=== PATIENT | female | born 1980 | race Caucasian/White ===

== ENCOUNTER 2019-06-09 20:32 | Observation (INO) ==
[2019-06-09 22:02] LABS: Basophils # 0.1 K/mcL (0.0-0.2); Basophils % 0.6 %; Eosinophils # 0.2 K/mcL (0.0-0.6); Hematocrit 40.1 % (35.3-44.9); Hemoglobin 13.4 g/dL (11.5-15.4); Immature Granulocytes % 0.3 % (0-4); Lymphocytes % 20.6 %; Mean Corpuscular HGB Conc 33.4 g/dL (31.6-35.5); Mean Corpuscular Hemoglobin 31.5 pg (28.0-33.3); Mean Corpuscular Volume 94.4 fL (83.0-100.0); Mean Platelet Volume 8.4 fL (9.4-12.4); Monocytes # 0.5 K/mcL (0.0-1.3); Monocytes % 5.3 %; Platelet Count 391 K/mcL (140-400); Red Blood Count 4.25 M/mcL (3.82-4.97); Red Cell Distribution Width 12.8 % (11.5-14.5); Segmented Neutrophils % 71.2 %; White Blood Count 9.8 K/mcL (4.3-11.1)
[2019-06-09 22:04] LABS: INR 1.1; Prothrombin Time 12.9 Seconds (9.4-12.1)
[2019-06-09 22:19] LABS: BUN/Creatinine Ratio 6 (6-26); Blood Urea Nitrogen 6 mg/dL (6-20); Calcium 9.3 mg/dL (8.6-10.3); Carbon Dioxide 22 mEq/L (23-29); Chloride 104 mEq/L (98-107); Glucose 102 mg/dL (70-105); Osmolality,Calculated 278 (280-300); Potassium 3.3 mEq/L (3.5-5.1); Sodium 135 mEq/L (136-145); eGFR For African Americans > 60 (> 60); eGFR For Non-African Americans > 60 (> 60)
[2019-06-09] MEDS ORDERED: Isovue-370 500 ML BOTTLE IVP ONE (22:41)
[2019-06-09] MEDS ORDERED: Ondansetron 4 MG/2 ML VIAL IVP PRN (22:51)
[2019-06-09] MEDS ORDERED: Naloxone 0.4 MG/ML INJ IVP PRN (22:53)
[2019-06-09] MEDS ORDERED: 0.9 % Sodium Chloride 1,000 ML IVC SCH (23:00)
[2019-06-10] MEDS: Ketorolac 30 MG/ML VIAL IVP PRN ×2 (06:39→19:57)
[2019-06-10] MEDS: Piperacillin/Tazobactam 3.375 GM in 0.9 % Sodium Chloride Mini Bag 100 ML IVPB SCH ×2 (07:29→16:38)
[2019-06-10 08:14] LABS: Basophils # 0.1 K/mcL (0.0-0.2); Basophils % 0.7 %; Eosinophils # 0.2 K/mcL (0.0-0.6); Hematocrit 36.5 % (35.3-44.9); Hemoglobin 12.4 g/dL (11.5-15.4); Immature Granulocytes % 0.2 % (0-4); Lymphocytes # 1.7 K/mcL (0.6-4.6); Mean Corpuscular Hemoglobin 31.6 pg (28.0-33.3); Mean Corpuscular Volume 93.1 fL (83.0-100.0); Mean Platelet Volume 8.8 fL (9.4-12.4); Monocytes # 0.5 K/mcL (0.0-1.3); Monocytes % 4.9 %; Neutrophils # 6.7 K/mcL (1.6-8.9); Platelet Count 373 K/mcL (140-400); Red Blood Count 3.92 M/mcL (3.82-4.97); Red Cell Distribution Width 12.8 % (11.5-14.5); Segmented Neutrophils % 73.2 %; White Blood Count 9.2 K/mcL (4.3-11.1)
[2019-06-10] MEDS ORDERED: Acetaminophen 325 MG TABLET PO ONE ×2 (11:17→20:28)
[2019-06-10 11:31] LABS: Alanine Aminotransferase 6 Units/L (7-52); Albumin 3.7 g/dL (3.5-5.7); Albumin/Globulin Ratio 1.2 (1.1-2.2); Alkaline Phosphatase 112 Units/L (34-104); Aspartate Amino Transferase 12 Units/L (13-39); BUN/Creatinine Ratio 6 (6-26); Bilirubin,Total 0.4 mg/dL (0.3-1.0); Blood Urea Nitrogen 5 mg/dL (6-20); Calcium 8.7 mg/dL (8.6-10.3); Carbon Dioxide 20 mEq/L (23-29); Chloride 109 mEq/L (98-107); Glucose 108 mg/dL (70-105); Osmolality,Calculated 286 (280-300); Potassium 3.7 mEq/L (3.5-5.1); Sodium 139 mEq/L (136-145); Total Protein 6.7 g/dL (6.4-8.9); eGFR For African Americans > 60 (> 60); eGFR For Non-African Americans > 60 (> 60)
[2019-06-11] MEDS ORDERED: Aminoglycoside Consult 1 EACH MC ONE (00:03)
[2019-06-11] MEDS: Piperacillin/Tazobactam 3.375 GM in 0.9 % Sodium Chloride Mini Bag 100 ML IVPB SCH ×4 (00:05→23:41)
[2019-06-11] MEDS: Ketorolac 30 MG/ML VIAL IVP PRN (05:36)
[2019-06-11 05:50] LABS: Hematocrit 36.5 % (35.3-44.9); Hemoglobin 12.2 g/dL (11.5-15.4); Mean Corpuscular HGB Conc 33.4 g/dL (31.6-35.5); Mean Corpuscular Hemoglobin 31.4 pg (28.0-33.3); Mean Corpuscular Volume 94.1 fL (83.0-100.0); Mean Platelet Volume 8.5 fL (9.4-12.4); Platelet Count 328 K/mcL (140-400); Red Blood Count 3.88 M/mcL (3.82-4.97); Red Cell Distribution Width 12.8 % (11.5-14.5); White Blood Count 5.8 K/mcL (4.3-11.1)
[2019-06-11 06:14] LABS: BUN/Creatinine Ratio 6 (6-26); Blood Urea Nitrogen 6 mg/dL (6-20); Calcium 8.7 mg/dL (8.6-10.3); Carbon Dioxide 21 mEq/L (23-29); Chloride 108 mEq/L (98-107); Glucose 94 mg/dL (70-105); Osmolality,Calculated 285 (280-300); Sodium 139 mEq/L (136-145); eGFR For African Americans > 60 (> 60); eGFR For Non-African Americans > 60 (> 60)
[2019-06-11] MEDS ORDERED: Ethanol\\Acetic Acid\\Na Ace\\Ben 1,000 ML IRRIG.SOLN IR ONE (17:14)
[2019-06-11] MEDS ORDERED: *HR* Propofol 200 MG/20 ML VIAL IVP ONE (17:16)
[2019-06-11] MEDS ORDERED: *HR* Midazolam HCl 2 MG/2 ML VIAL ONE (17:16)
[2019-06-11] MEDS ORDERED: *HR* FentaNYL (PF) 100 MCG/2 ML VIAL ONE (17:16)
[2019-06-11] MEDS ORDERED: Ondansetron 4 MG/2 ML VIAL ONE (17:18)
[2019-06-11] MEDS ORDERED: Lidocaine -MPF 2% 2 ML VIAL ONE (17:18)
[2019-06-11] MEDS ORDERED: *HR* HYDROMORPHONE 2 MG/ML VIAL ONE (18:08)
[2019-06-11] MEDS: *HR* HYDROmorphone (PF) 1 MG/ML SYRINGE IVP PRN ×3 (19:25→19:39)
[2019-06-11] MEDS ORDERED: Naloxone 0.4 MG/ML INJ IVP PRN ×2 (20:19)
[2019-06-11] MEDS ORDERED: Sennosides 8.6 MG TABLET PO PRN (20:19)
[2019-06-11] MEDS ORDERED: MOM Conc 10 ML UD.LIQ PO PRN (20:19)
[2019-06-11] MEDS ORDERED: Ondansetron 4 MG/2 ML VIAL IVP PRN ×2 (21:28→21:29)
[2019-06-11] MEDS ORDERED: Temazepam 15 MG CAPSULE PO PRN (21:30)
[2019-06-11] MEDS ORDERED: *HR* Promethazine 25 MG/ML VIAL IVP PRN (21:30)
[2019-06-12 02:09] LABS: Basophils % 0.6 %; Eosinophils # 0.1 K/mcL (0.0-0.6); Eosinophils % 1.9 %; Hemoglobin 12.6 g/dL (11.5-15.4); Immature Granulocytes % 0.4 % (0-4); Lymphocytes # 1.3 K/mcL (0.6-4.6); Mean Corpuscular HGB Conc 34.1 g/dL (31.6-35.5); Mean Corpuscular Hemoglobin 31.2 pg (28.0-33.3); Mean Corpuscular Volume 91.6 fL (83.0-100.0); Monocytes # 0.3 K/mcL (0.0-1.3); Monocytes % 5.1 %; Neutrophils # 3.4 K/mcL (1.6-8.9); Platelet Count 344 K/mcL (140-400); Red Blood Count 4.04 M/mcL (3.82-4.97); Red Cell Distribution Width 12.8 % (11.5-14.5); White Blood Count 5.1 K/mcL (4.3-11.1)
[2019-06-12 02:30] LABS: BUN/Creatinine Ratio 7 (6-26); Blood Urea Nitrogen 6 mg/dL (6-20); Calcium 8.5 mg/dL (8.6-10.3); Carbon Dioxide 21 mEq/L (23-29); Chloride 108 mEq/L (98-107); Glucose 81 mg/dL (70-105); Osmolality,Calculated 283 (280-300); Potassium 3.6 mEq/L (3.5-5.1); Sodium 138 mEq/L (136-145); eGFR For African Americans > 60 (> 60); eGFR For Non-African Americans > 60 (> 60)
[2019-06-12] MEDS: Ketorolac 30 MG/ML VIAL IVP PRN ×2 (03:36→11:05)
[2019-06-12] MEDS: Multivit/Ca/Min/Fe/FA 1 TAB TABLET PO SCH (08:48)
[2019-06-12] MEDS: Ascorbic Acid 500 MG TABLET PO SCH ×2 (08:48→16:47)
[2019-06-12] MEDS: Piperacillin/Tazobactam 3.375 GM in 0.9 % Sodium Chloride Mini Bag 100 ML IVPB SCH (08:48)
[2019-06-12] MEDS ORDERED: VILAZODONE HCL PO SCH ×2 (09:00)
[2019-06-12] MEDS ORDERED: (Brexpiprazole [Rexulti] 2 MG) PO SCH ×2 (09:00)
[2019-06-12] MEDS: cephALEXin 500 MG CAPSULE PO SCH ×3 (12:11→19:44)
[2019-06-12] MEDS ORDERED: *HR* LORazepam 1 MG TABLET PO ONE (18:57)
[2019-06-12] MEDS ORDERED: Haloperidol Lactate 5 MG/ML VIAL IVP ONE (18:57)
[2019-06-12] MEDS: Ringers Solution, Lactated 1,000 ML IVC SCH ×2 (19:36→22:25)
[2019-06-12] MEDS: Sulfamethoxazole/Trimeth DS 1 EACH TABLET PO SCH (19:44)
[2019-06-13 08:10] VITALS: BP 110/78
[2019-06-13] MEDS: cephALEXin 500 MG CAPSULE PO SCH (10:07)
[2019-06-13] MEDS: Ascorbic Acid 500 MG TABLET PO SCH (10:07)
[2019-06-13] MEDS: Multivit/Ca/Min/Fe/FA 1 TAB TABLET PO SCH (10:07)
[2019-06-13] MEDS: Sulfamethoxazole/Trimeth DS 1 EACH TABLET PO SCH (10:07)
== END 2019-06-13 10:36 | disposition home or self-care (01) ==
LOC: 3NENU 20:32 → EMEROOARM 20:32 → SUATTDRO 06-10 00:02 → 3NENU 06-10 00:36
PROVIDERS: ADMIT Internal Medicine; ATTEND Internal Medicine